=== PATIENT | male | born 1985 | race Caucasian/White ===

== ENCOUNTER 2022-02-28 11:43 | Emergency (ER) | payer MEDICAID ==
[~2022-02-28] VITALS: Ht 175.3 cm; Wt 95.0 kg
[2022-02-28] MEDS ORDERED: BENZTROPINE MESYLATE 1 MG/ML 2ML VIAL IM ONE (12:30)
[2022-02-28] MEDS ORDERED: BENZTROPINE MESYLATE 1MG TABLET PO ONE (13:45)
[2022-02-28 18:22] VITALS: BP 143/90
== END 2022-02-28 18:17 | disposition home or self-care (01) ==
LOC: ER 11:55
DX: G24.9 Dystonia, unspecified (principal); R00.0 Tachycardia, unspecified; R03.0 Elevated blood-pressure reading, without diagnosis of hypertension; R62.50 Unspecified lack of expected normal physiological development in childhood
CPT/HCPCS: 93005; 96372; 99283; J0515; Z7610